=== PATIENT | male | born 2000 | race Caucasian/White ===

== ENCOUNTER 2018-04-01 11:56 | Inpatient (IN) | payer BC, OTHER ==
[~2018-04-01] VITALS: Ht 177.8 cm; Wt 67.0 kg
[2018-04-01 12:02] VITALS: BP 137/82; PULSE 84; RESP 18; TEMP 98.5; O2SAT 100
[2018-04-01 12:06] VITALS: O2SAT 100
[2018-04-01] MEDS ORDERED: SODIUM CHLORIDE 0.9% FLUSH 10 ML FLUSH IVF PRN (12:15)
[2018-04-01] MEDS ORDERED: MORPHINE SULFATE 4 MG/ML INJ IV PUSH ONE ×2 (12:45→14:45)
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
[2018-04-01 13:30] VITALS: BP 132/65; PULSE 89; RESP 20; O2SAT 99
[2018-04-01 14:16] LABS: AUTOMATED NEUTROPHIL # 14.9 TH/MM3 (1.8-7.7); BASOPHIL % 0.2 % (0.0-2.0); HEMATOCRIT 42.5 % (39.0-51.0); HEMOGLOBIN 15.2 GM/DL (13.0-17.0); MEAN CELL VOLUME 84.8 FL (80.0-100.0); MEAN CORPUSCULAR HEMOGLOBIN 30.3 PG (27.0-34.0); MEAN CORPUSCULAR HGB CONC 35.7 % (32.0-36.0); MEAN PLATELET VOLUME 8.4 FL (7.0-11.0); MONO % 6.7 % (0.0-8.0); MONOCYTE # 1.1 TH/MM3 (0-0.9); NEUT % 87.1 % (16.0-70.0); PLATELET COUNT 234 TH/MM3 (150-450); RED BLOOD COUNT 5.01 MIL/MM3 (4.50-5.90); RED CELL DISTRIBUTION WIDTH 12.6 % (11.6-17.2); WHITE BLOOD COUNT 17.1 TH/MM3 (4.0-11.0)
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
[2018-04-01 14:25] LABS: INTERNATIONAL NORMALIZED RATIO 1.1 RATIO; PROTHROMBIN TIME - PATIENT 11.4 SEC (9.8-11.6)
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
[2018-04-01] MEDS ORDERED: IOHEXOL 350 MG/ML 10 ML VIAL (for RAD DIAG) IVCONTRAST ONE (14:39)
[2018-04-01 14:44] LABS: BICARBONATE 23.9 MEQ/L (21.0-32.0); CALCIUM 8.6 MG/DL (8.5-10.1); CREATININE 0.95 MG/DL (0.60-1.30)
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
[2018-04-01] MEDS ORDERED: MORPHINE SULFATE 8 MG/ML INJ IV PUSH PRN (16:15)
[2018-04-01] MEDS ORDERED: DIPHTH/TETANUS/ACEL PERTUSSIS (BOOSTER) 0.5 ML VIAL/PFS IM ONE (16:15)
[2018-04-01] MEDS ORDERED: ENALAPRILAT 1.25 MG/ML VIAL IV PUSH PRN (16:15)
[2018-04-01] MEDS ORDERED: MORPHINE SULFATE 4 MG/ML INJ IV PUSH PRN (16:15)
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
[2018-04-01 16:30] VITALS: BP 139/64; PULSE 86; RESP 15; O2SAT 98
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
[2018-04-01] MEDS: SODIUM CHLOR 0.9% 1000 ML INJ 1,000 ML IV SCH ×2 (16:41→18:08)
[2018-04-01] MEDS: PANTOPRAZOLE SODIUM 40 MG VIAL IVP SCH (17:00)
[2018-04-01 18:00] VITALS: PULSE 90
[2018-04-01] MEDS: ceFAZolin 2 GM PREMIX 50 ML IV SCH (18:00)
[2018-04-01] MEDS ORDERED: oxyCODONE/ACETAMINOPHEN 5 MG/325 MG TAB PO PRN (19:30)
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
[2018-04-01] MEDS: levETIRAcetam INJ 500 MG in SODIUM CHLORIDE 0.9% INJ 100 ML IV SCH (19:55)
[2018-04-01] MEDS: MORPHINE SULFATE 4 MG/ML INJ IV PUSH PRN (19:56)
[2018-04-01 20:00] VITALS: BP 132/64; PULSE 92; PULSE 97; RESP 17; TEMP 102.9; O2SAT 97
[2018-04-01] MEDS: ACETAMINOPHEN 1000 MG/100 ML 100 ML IV PRN (20:25)
[2018-04-02] VITALS (10 sets, daily range): BP systolic 121–142; BP diastolic 59–87; PULSE 80–98; RESP 12–18; TEMP 99.1–101; O2SAT 94–100
[2018-04-02] MEDS: ceFAZolin 2 GM PREMIX 50 ML IV SCH ×3 (01:56→18:49)
[2018-04-02] MEDS: MORPHINE SULFATE 4 MG/ML INJ IV PUSH PRN ×5 (02:05→22:11)
[2018-04-02] MEDS: SODIUM CHLOR 0.9% 1000 ML INJ 1,000 ML IV SCH (04:01)
[2018-04-02 05:04] LABS: WHITE BLOOD COUNT 11.1 TH/MM3 (4.0-11.0)
[2018-04-02 05:05] LABS: AUTOMATED NEUTROPHIL # 7.7 TH/MM3 (1.8-7.7); BASOPHIL % 0.2 % (0.0-2.0); EOSINOPHIL % 0.3 % (0.0-4.0); HEMATOCRIT 43.2 % (39.0-51.0); HEMOGLOBIN 14.9 GM/DL (13.0-17.0); LYMPHOCYTE # 1.9 TH/MM3 (1.0-4.8); MEAN CELL VOLUME 86.8 FL (80.0-100.0); MEAN CORPUSCULAR HGB CONC 34.6 % (32.0-36.0); MEAN PLATELET VOLUME 8.7 FL (7.0-11.0); MONO % 12.9 % (0.0-8.0); MONOCYTE # 1.4 TH/MM3 (0-0.9); NEUT % 69.6 % (16.0-70.0); PLATELET COUNT 199 TH/MM3 (150-450); RED BLOOD COUNT 4.98 MIL/MM3 (4.50-5.90); RED CELL DISTRIBUTION WIDTH 12.6 % (11.6-17.2)
[2018-04-02 05:35] LABS: ALBUMIN 3.9 GM/DL (3.4-5.0); AST (GOT) 20 U/L (15-39); BICARBONATE 27.1 MEQ/L (21.0-32.0); BLOOD UREA NITROGEN 7 MG/DL (7-18); CALCIUM 8.3 MG/DL (8.5-10.1); CHLORIDE 105 MEQ/L (98-107); CREATININE 0.99 MG/DL (0.60-1.30); GLOMERULAR FILTRATION RATE 96 ML/MIN (>89); GLUCOSE,RANDOM 89 MG/DL (74-106); SODIUM (NA) 141 MEQ/L (136-145)
[2018-04-02 05:39] LABS: ALKALINE PHOSPHATASE 59 U/L (45-117); ALT (GPT) 17 U/L (9-52); TOTAL BILIRUBIN ADULT 5.9 MG/DL (0.2-1.0); TOTAL PROTEIN 6.4 GM/DL (6.4-8.2)
[2018-04-02] MEDS: MAGNESIUM HYDROXIDE SUSP 30 ML CUP PO SCH ×2 (09:00→20:52)
[2018-04-02] MEDS: DOCUSATE SODIUM 50 MG/SENNA 8.6 MG TAB PO SCH ×2 (10:09→20:52)
[2018-04-02] MEDS: levETIRAcetam INJ 500 MG in SODIUM CHLORIDE 0.9% INJ 100 ML IV SCH ×2 (10:09→20:51)
[2018-04-02] MEDS: ACETAMINOPHEN 1000 MG/100 ML 100 ML IV PRN (10:09)
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
[2018-04-02] MEDS: SODIUM CHLORIDE 0.9% FLUSH 10 ML FLUSH IV FLUSH PRN (15:52)
[2018-04-02] MEDS: PANTOPRAZOLE SODIUM 40 MG VIAL IVP SCH (15:52)
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
--- NOTE | 2018-04-02 18:54 | RADRPT ---
EXAM DATE/TIME: 04/02/2018 18:28 [facility] COMPARISON: CT BRAIN W/O CONTRAST, April 01, 2018, 14:05. INDICATIONS : Follow up hemorrhage. RADIATION DOSE: 51.76 CTDIvol (mGy) MEDICAL HISTORY : AVM SURGICAL HISTORY : Craniotomy. ENCOUNTER: Subsequent ACUITY: 1 day PAIN SCALE: 5/10 LOCATION: cranial TECHNIQUE: Multiple contiguous axial images were obtained of the head. Using automated exposure control and adj ustment of the mA and/or kV according to patient size, radiation dose was kept as low as reasonably a chievable to obtain optimal diagnostic quality images. DICOM format image data is available electro nically for review and comparison. FINDINGS: On today's study there has been interval development of a 1.3 cm oval-shaped high attenuation focus i nvolving the posterior cranial fossa on the left. This projects either within the superficial aspect of the middle cerebellar peduncle or within the immediate adjacent CSF. This is consistent with a foc us of hemorrhage. Intraparenchymal hemorrhagic contusion is seen involving the vertex of the left fro ntal lobe. This is approximately 1.5 cm in size. It is less distinct consistent with some maturation. No other sources of hemorrhage observe. No edema. Ventricles are normal in size. No midline shift. M etallic plates associated with the left temporal parietal bone. No acute skull fracture. Paranasal si nuses and mastoid air cells are clear. CONCLUSION: 1. Small focus of hemorrhage within the posterior cranial fossa on the left as detailed above. This w as not present on the prior study. I am unsure if this is intraparenchymal involving the middle cereb ellar peduncle or subarachnoid in nature. 2. Stable hemorrhagic contusion involving the left frontal lobe near the vertex. Vamsi Du Jr., MD on April 02, 2018 at 18:47 Board Certified Radiologist. This report was verified electronically.
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
[2018-04-03] VITALS: BP 127/64; PULSE 98; RESP 12; TEMP 99.3; O2SAT 98
[2018-04-03] MEDS: SODIUM CHLOR 0.9% 1000 ML INJ 1,000 ML IV SCH ×2 (00:47→08:34)
[2018-04-03] MEDS: ceFAZolin 2 GM in NS 100 ML IV SCH ×3 (01:38→15:44)
[2018-04-03] MEDS: MORPHINE SULFATE 4 MG/ML INJ IV PUSH PRN ×4 (01:39→11:34)
[2018-04-03 04:00] VITALS: BP 142/68; PULSE 93; RESP 17; TEMP 97.8; O2SAT 95
[2018-04-03 04:42] LABS: AUTOMATED NEUTROPHIL # 5.9 TH/MM3 (1.8-7.7); BASOPHIL % 0.2 % (0.0-2.0); EOSINOPHIL % 0.3 % (0.0-4.0); HEMATOCRIT 39.3 % (39.0-51.0); HEMOGLOBIN 13.7 GM/DL (13.0-17.0); LYMPH % 19.4 % (9.0-44.0); LYMPHOCYTE # 1.7 TH/MM3 (1.0-4.8); MEAN CELL VOLUME 86.4 FL (80.0-100.0); MEAN CORPUSCULAR HEMOGLOBIN 30.1 PG (27.0-34.0); MEAN CORPUSCULAR HGB CONC 34.9 % (32.0-36.0); MEAN PLATELET VOLUME 8.1 FL (7.0-11.0); MONO % 11.1 % (0.0-8.0); PLATELET COUNT 178 TH/MM3 (150-450); RED BLOOD COUNT 4.55 MIL/MM3 (4.50-5.90); RED CELL DISTRIBUTION WIDTH 12.5 % (11.6-17.2); WHITE BLOOD COUNT 8.6 TH/MM3 (4.0-11.0)
[2018-04-03 05:03] LABS: ALBUMIN 3.5 GM/DL (3.4-5.0); ALT (GPT) 12 U/L (9-52); AST (GOT) 16 U/L (15-39); BICARBONATE 25.4 MEQ/L (21.0-32.0); BLOOD UREA NITROGEN 7 MG/DL (7-18); CALCIUM 8.1 MG/DL (8.5-10.1); CHLORIDE 105 MEQ/L (98-107); CREATININE 0.86 MG/DL (0.60-1.30); GLOMERULAR FILTRATION RATE 113 ML/MIN (>89); GLUCOSE,RANDOM 80 MG/DL (74-106); SODIUM (NA) 141 MEQ/L (136-145)
[2018-04-03 05:04] LABS: ALKALINE PHOSPHATASE 51 U/L (45-117); TOTAL BILIRUBIN ADULT 4.4 MG/DL (0.2-1.0)
[2018-04-03 07:26] VITALS: BP 141/63; PULSE 86; RESP 19; TEMP 98.3; O2SAT 95
[2018-04-03] MEDS: DOCUSATE SODIUM 50 MG/SENNA 8.6 MG TAB PO SCH ×2 (08:32→09:50)
[2018-04-03] MEDS: MAGNESIUM HYDROXIDE SUSP 30 ML CUP PO SCH ×2 (08:32→19:29)
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
[2018-04-03] MEDS: LACTULOSE SYRUP 20 GM/30 ML CUP PO SCH (09:50)
[2018-04-03] MEDS: levETIRAcetam INJ 500 MG in SODIUM CHLORIDE 0.9% INJ 100 ML IV SCH ×2 (09:50→19:29)
[2018-04-03 11:29] VITALS: BP 144/68; PULSE 85; RESP 19; TEMP 98.1; O2SAT 95
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
[2018-04-03] MEDS ORDERED: MAGN30S PO (13:24)
[2018-04-03 15:42] VITALS: BP 144/85; PULSE 73; RESP 18; TEMP 97.8; O2SAT 98
[2018-04-03] MEDS: PANTOPRAZOLE SODIUM 40 MG VIAL IVP SCH (15:44)
[2018-04-03] MEDS: oxyCODONE/ACETAMINOPHEN 7.5 MG/325 MG TAB PO PRN ×2 (15:46→21:12)
[2018-04-03 19:40] VITALS: BP 141/71; PULSE 66; RESP 16; TEMP 97.9; O2SAT 98
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
[2018-04-04] VITALS: BP 121/62; PULSE 67; RESP 16; TEMP 98.5; O2SAT 96
[2018-04-04] MEDS: ceFAZolin 2 GM in NS 100 ML IV SCH ×2 (02:05→10:01)
[2018-04-04 04:00] VITALS: BP 133/62; PULSE 87; RESP 16; TEMP 98.4; O2SAT 95
[2018-04-04] MEDS ORDERED: ONDANSETRON ODT 4 MG TAB PO PRN (06:45)
[2018-04-04 07:39] VITALS: BP 132/62; PULSE 111; RESP 18; TEMP 98.1; O2SAT 94
[2018-04-04] MEDS: LACTULOSE SYRUP 20 GM/30 ML CUP PO SCH (09:00)
[2018-04-04] MEDS: MAGNESIUM HYDROXIDE SUSP 30 ML CUP PO SCH ×2 (09:00→21:00)
[2018-04-04] MEDS: DOCUSATE SODIUM 50 MG/SENNA 8.6 MG TAB PO SCH ×2 (09:00→21:00)
[2018-04-04] MEDS: oxyCODONE/ACETAMINOPHEN 7.5 MG/325 MG TAB PO PRN ×3 (09:25→20:51)
[2018-04-04] MEDS: levETIRAcetam INJ 500 MG in SODIUM CHLORIDE 0.9% INJ 100 ML IV SCH (09:30)
[2018-04-04 11:40] VITALS: BP 139/63; PULSE 110; RESP 18; TEMP 97.5; O2SAT 93
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
[2018-04-04] MEDS ORDERED: ACETAMINOPHEN 325 MG TAB PO PRN (15:00)
[2018-04-04 15:34] VITALS: BP 133/78; PULSE 80; RESP 18; TEMP 97.7; O2SAT 98
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
[2018-04-04 20:00] VITALS: BP 131/75; PULSE 85; RESP 21; TEMP 98.7; O2SAT 97
[2018-04-04] MEDS ORDERED: levETIRAcetam 500 MG TAB PO SCH (21:00)
[2018-04-04] MEDS: levETIRAcetam 500 MG/NS 100 ML IV SCH ×2 (22:46)
[2018-04-05] VITALS: BP 116/59; PULSE 67; RESP 21; TEMP 98.5; O2SAT 97
[2018-04-05] MEDS ORDERED: SODIUM CHLORID 0.9% 500 ML IV PRN (01:15)
[2018-04-05] MEDS ORDERED: LACTATED RINGER'S 1000 ML IV PRN (01:15)
[2018-04-05] MEDS ORDERED: CHLORHEXIDINE GLUCONATE 2 % 1 PACK (2 CLOTHS) TOPICAL PRN (01:15)
[2018-04-05] MEDS ORDERED: METOPROLOL TARTRATE 25 MG TAB PO PRN (01:15)
[2018-04-05] MEDS ORDERED: POVIDONE IODINE 5% (ANTISEPSIS KIT) 4 APPLICATIONS EACH NARE PRN (01:15)
[2018-04-05 04:00] VITALS: BP 136/55; PULSE 81; RESP 20; TEMP 97.8; O2SAT 98
[2018-04-05] MEDS: oxyCODONE/ACETAMINOPHEN 7.5 MG/325 MG TAB PO PRN ×4 (04:05→23:31)
[2018-04-05] MEDS ORDERED: ACETAMINOPHEN 1000 MG/100 ML 100 ML IV ONE (06:20)
[2018-04-05 06:50] VITALS: BP 130/62; PULSE 79; RESP 19; TEMP 97.9; O2SAT 98
[2018-04-05] MEDS ORDERED: BUPIVACAINE/EPINEPHRINE 0.5% PF 10 ML VIAL ONE ×2 (06:58→07:42)
[2018-04-05] MEDS ORDERED: OXYMETAZOLINE HCL 0.05% 15 ML NASAL SPRAY ONE (06:59)
[2018-04-05] MEDS ORDERED: HYDROmorphone HCL PF 2 MG/ML VIAL ONE (07:28)
[2018-04-05 07:32] VITALS: BP 111/59; PULSE 57; RESP 19; TEMP 97.8; O2SAT 97
[2018-04-05] MEDS ORDERED: ARTIFICIAL TEARS OPTH OINT 3.5 APPLIC/3.5 GM TUBO ONE (08:09)
[2018-04-05] MEDS ORDERED: CHLORHEXIDINE GLUCONATE 0.12% 15 ML CUP ONE (08:51)
[2018-04-05] MEDS: MAGNESIUM HYDROXIDE SUSP 30 ML CUP PO SCH ×2 (09:00→20:45)
[2018-04-05] MEDS: DOCUSATE SODIUM 50 MG/SENNA 8.6 MG TAB PO SCH ×2 (09:00→20:45)
[2018-04-05] MEDS: LACTULOSE SYRUP 20 GM/30 ML CUP PO SCH (09:00)
[2018-04-05] MEDS ORDERED: MUPIROCIN 2% OINT 22 GM TUBE ONE (09:46)
[2018-04-05] MEDS ORDERED: DO NOT ADM ANY ANTICOAGULANT DRUGS PRN ×2 (11:24→14:30)
[2018-04-05] MEDS ORDERED: MIDAZOLAM HCL 2 MG/2 ML VIAL ONE (11:29)
[2018-04-05] MEDS ORDERED: *RESP: ALBUTEROL 2.5 MG/3 ML NEB (PRN) PERIprocedural Use ONLY NEB ONE (11:44)
[2018-04-05] MEDS: levETIRAcetam 500 MG/NS 100 ML IV SCH ×4 (12:00→20:42)
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
[2018-04-05] MEDS ORDERED: ROCURONIUM INJ 50 MG/5 ML SYRINGE IV PUSH ONE (13:11)
[2018-04-05] MEDS ORDERED: ONDANSETRON HCL 4 MG/2 ML VIAL IV PUSH ONE (13:11)
[2018-04-05] MEDS ORDERED: DEXAMETHASONE SOD PHOS 4 MG/ML VIAL IV ONE (13:11)
[2018-04-05] MEDS ORDERED: NEOSTIGMINE 5 MG/5 ML SYRINGE IV PUSH ONE (13:11)
[2018-04-05] MEDS ORDERED: ceFAZolin INJ 1,000 MG VIAL IV ONE (13:11)
[2018-04-05] MEDS ORDERED: GLYCOPYRROLATE 1 MG/5 ML SYRINGE IV PUSH ONE (13:11)
[2018-04-05] MEDS ORDERED: LIDOCAINE HCL 1% PF 5 ML SYRINGE OTHER ONE (13:11)
[2018-04-05] MEDS ORDERED: LACTATED RINGER'S 1000 ML INJ 1,000 ML IV ONE (13:11)
[2018-04-05] MEDS ORDERED: PROPOFOL 200 MG/20 ML AMP IV ONE (13:11)
[2018-04-05 13:15] VITALS: BP 153/79; PULSE 91; RESP 14; TEMP 97.8; O2SAT 95
[2018-04-05] MEDS: MORPHINE SULFATE 4 MG/ML INJ IV PUSH PRN ×3 (13:19→20:35)
[2018-04-05] MEDS ORDERED: MUPIROCIN 2% OINT 22 GM TUBE TOPICAL PRN (14:45)
[2018-04-05] MEDS: ceFAZolin 2 GM/DEX PREMIX 50 ML IV SCH ×2 (15:08→23:34)
[2018-04-05 20:00] VITALS: BP 156/78; PULSE 88; RESP 19; TEMP 98; O2SAT 95
[2018-04-05] MEDS: SODIUM CHLORIDE 0.9% FLUSH 10 ML FLUSH IV FLUSH PRN (20:35)
[2018-04-06] VITALS (7 sets, daily range): BP systolic 135–156; BP diastolic 73–89; PULSE 76–103; RESP 17–21; TEMP 97.7–99.8; O2SAT 93–97
[2018-04-06] MEDS: CHLORHEXIDINE 0.12% (ORAL KIT) 15 ML CUP SWISH-SPIT SCH ×3 (00:06→22:28)
[2018-04-06] MEDS: MORPHINE SULFATE 4 MG/ML INJ IV PUSH PRN ×5 (00:31→19:22)
[2018-04-06] MEDS: oxyCODONE/ACETAMINOPHEN 7.5 MG/325 MG TAB PO PRN (03:55)
[2018-04-06] MEDS ORDERED: ACETAMINOPHEN 650 MG/20.3 ML UDC PO PRN (07:15)
[2018-04-06] MEDS: LACTULOSE SYRUP 20 GM/30 ML CUP PO SCH (07:16)
[2018-04-06] MEDS: MAGNESIUM HYDROXIDE SUSP 30 ML CUP PO SCH ×2 (07:16→21:00)
[2018-04-06] MEDS: ceFAZolin 2 GM/DEX PREMIX 50 ML IV SCH ×2 (08:21→15:26)
[2018-04-06] MEDS: levETIRAcetam 500 MG/NS 100 ML IV SCH ×4 (09:02→22:21)
[2018-04-06] MEDS: oxyCODONE HCL ORAL CONC 5 MG/0.25 ML SYRINGE PO PRN ×4 (09:33→22:59)
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
--- NOTE | 2018-04-06 15:24 | HHI.PR ---
Subjective Remarks Doing well. Denies nausea. Pain controlled. Objective Vital Signs Date Time Temp Pulse Resp B/P (MAP) Pulse Ox O2 Delivery O2 Flow Rate FiO2 04/06/18 12:00 97.9 76 17 138/77 (97) 97 04/06/18 08:00 97.7 82 17 151/89 (109) 96 04/06/18 04:00 98.7 103 21 153/73 (99) 93 04/06/18 00:31 18 04/06/18 00:00 98.0 85 18 135/80 (98) 96 04/05/18 20:40 18 04/05/18 20:00 98.0 88 19 156/78 (104) 95 I/O 04/05/18 04/05/18 04/05/18 04/06/18 04/06/18 04/06/18 07:00 15:00 23:00 07:00 15:00 23:00 Intake Total 400 ml 110 ml 105 ml 950 ml Output Total 500 ml Balance 400 ml 110 ml 105 ml 450 ml Intake Oral 400 ml 900 ml IV Total 110 ml 105 ml 50 ml Output Urine Total 500 ml # Voids 3 1 Result Diagram: 04/03/18 0403 04/03/18 0403 Objective Remarks Arch bars in place Rubber bands in place Appropriate edema Assessment and Plan Problem List: (1) Mandible fracture ICD Codes: S02.609A - Fracture of mandible, unspecified, initial encounter for closed fracture Status: Acute Assessment and Plan 18-year-old male with mandible fractures postoperative day 1 status post ORIF/ MMF for mandibular fractures Doing well Liquid diet Patient should follow-up in the plastic surgery clinic in 2 weeks Please discharge patient with prescription of Peridex 20 mls p.o. swish and spit 3 times daily as well as a bag of dental elastics Problem Qualifiers (1) Mandible fracture: Qualified Codes: S02.609A - Fracture of mandible, unspecified, initial encounter for closed fracture Arvind Walters MD April 06, 2018 15:24
[2018-04-06] MEDS: SODIUM CHLORIDE 0.9% FLUSH 10 ML FLUSH IV FLUSH PRN (19:28)
[2018-04-06] MEDS ORDERED: ZOLPIDEM TARTRATE 5 MG TAB PO PRN (21:15)
[2018-04-06] MEDS ORDERED: Chlorhexidine 0.12% Liq SWISH-SPIT (21:38)
[2018-04-07] MEDS: ceFAZolin 2 GM/DEX PREMIX 50 ML IV SCH (00:17)
[2018-04-07] MEDS: MORPHINE SULFATE 4 MG/ML INJ IV PUSH PRN ×5 (02:33→21:30)
[2018-04-07] MEDS: SODIUM CHLORIDE 0.9% FLUSH 10 ML FLUSH IV FLUSH PRN (02:41)
[2018-04-07 02:59] VITALS: BP 141/83; PULSE 108; RESP 18; TEMP 97.5; O2SAT 94
[2018-04-07] MEDS: oxyCODONE HCL ORAL CONC 5 MG/0.25 ML SYRINGE PO PRN ×4 (05:57→19:43)
[2018-04-07 08:00] VITALS: BP 147/84; PULSE 89; RESP 18; TEMP 97.8; O2SAT 99
[2018-04-07] MEDS: MAGNESIUM HYDROXIDE SUSP 30 ML CUP PO SCH ×2 (09:00→19:42)
[2018-04-07] MEDS: CHLORHEXIDINE 0.12% (ORAL KIT) 15 ML CUP SWISH-SPIT SCH ×2 (09:00→21:45)
[2018-04-07] MEDS: LACTULOSE SYRUP 20 GM/30 ML CUP PO SCH (09:00)
[2018-04-07] MEDS: levETIRAcetam 500 MG/NS 100 ML IV SCH ×4 (10:33→21:30)
[2018-04-07 12:00] VITALS: BP 136/90; PULSE 100; RESP 19; TEMP 97.4; O2SAT 95
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
[2018-04-07 16:00] VITALS: BP 141/83; PULSE 107; RESP 18; TEMP 98; O2SAT 95
[2018-04-07 20:00] VITALS: BP 141/72; PULSE 86; RESP 20; TEMP 98.5; O2SAT 95
[2018-04-08] VITALS: BP 157/87; PULSE 91; RESP 20; TEMP 98.9; O2SAT 97
[2018-04-08] MEDS: oxyCODONE HCL ORAL CONC 5 MG/0.25 ML SYRINGE PO PRN ×2 (01:04→06:29)
[2018-04-08] MEDS: MORPHINE SULFATE 4 MG/ML INJ IV PUSH PRN ×2 (03:50→10:31)
[2018-04-08 04:00] VITALS: BP 152/84; PULSE 91; RESP 20; TEMP 97.9; O2SAT 95
[2018-04-08 08:00] VITALS: BP 138/88; PULSE 100; RESP 19; TEMP 97.9; O2SAT 97
[2018-04-08] MEDS: CHLORHEXIDINE 0.12% (ORAL KIT) 15 ML CUP SWISH-SPIT SCH (09:00)
[2018-04-08] MEDS: LACTULOSE SYRUP 20 GM/30 ML CUP PO SCH (09:00)
[2018-04-08] MEDS: MAGNESIUM HYDROXIDE SUSP 30 ML CUP PO SCH (09:00)
[2018-04-08] MEDS ORDERED: OXYC1SOL3 PO (11:10)
[2018-04-08] MEDS ORDERED: SENNSYP PO (11:14)
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
== END 2018-04-08 13:12 | disposition home or self-care (01) | DRG 131 ==
LOC: NEPC 11:56 → NEDA 15:22 → N03A 17:29 → N06A 04-03 00:25
PROVIDERS: ADMIT Surgery; ATTEND Surgery
PROC: 0HQ1XZZ Repair Face Skin, External Approach (ICD-10-PCS; principal; 2018-04-01)
PROC: 0NST04Z Reposition Right Mandible with Internal Fixation Device, Open Approach (ICD-10-PCS; 2018-04-05)
PROC: 0NSV04Z Reposition Left Mandible with Internal Fixation Device, Open Approach (ICD-10-PCS; 2018-04-05)
DX: S02.66XB Fracture of symphysis of mandible, initial encounter for open fracture (principal); S06.6X9A Traumatic subarachnoid hemorrhage with loss of consciousness of unspecified duration, initial encounter; R41.3 Other amnesia; S02.5XXA Fracture of tooth (traumatic), initial encounter for closed fracture; S40.211A Abrasion of right shoulder, initial encounter; S06.359A Traumatic hemorrhage of left cerebrum with loss of consciousness of unspecified duration, initial encounter; S10.91XA Abrasion of unspecified part of neck, initial encounter; S02.601B Fracture of unspecified part of body of right mandible, initial encounter for open fracture; S02.642A Fracture of ramus of left mandible, initial encounter for closed fracture; S02.622A Fracture of subcondylar process of left mandible, initial encounter for closed fracture; S80.212A Abrasion, left knee, initial encounter; V86.56XA Driver of dirt bike or motor/cross bike injured in nontraffic accident, initial encounter
CPT/HCPCS: 12001; 70450; 70486; 70551; 71260; 72040; 72125; 74177; 80048; 80053; 83605; 85025; 85610; 85730; 86850; 86900; 86901; 87641; 88300; 88305; 90715; 94150; 94664; 96374; 96376; C9113; J0131; J0690; J1100; J1170; J1953; J2250; J2270; J2405; J2710; J3010; J7030; J7120; J7613; Q9967